=== PATIENT | female | born 1990 | race American Indian/Alaskan Native ===

== ENCOUNTER 2019-04-21 10:05 | Outpatient (CLI) | payer OTHER ==
[2019-04-21 11:05] VITALS: BP 123/70
[2019-04-21] MEDS ORDERED: LACTATED RINGERS 1,000 ML IV ONE (11:17)
[2019-04-21] MEDS ORDERED: ONDANSETRON 4 MG/2 ML INJ IV PRN (11:48)
[2019-04-21 12:01] LABS: Bilirubin,Urine NEG (Negative); Blood,Urine NEG (Negative); Color,Urine Yellow (Yellow); Mucus,Urine 3+ /HPF
== END 2019-04-21 13:15 | disposition home or self-care (01) ==
LOC: TRG 10:05
PROVIDERS: ATTEND Obstetrics & Gynecology
DX: O26.893 Other specified pregnancy related conditions, third trimester (principal); R42 Dizziness and giddiness; O47.03 False labor before 37 completed weeks of gestation, third trimester; Z3A.33 33 weeks gestation of pregnancy
CPT/HCPCS: 59025; 81001; 96365; J2405; J7120; 96360

== ENCOUNTER 2019-05-02 12:24 | Outpatient (CLI) | payer OTHER ==
[2019-05-02 12:48] VITALS: BP 107/67
[2019-05-02] MEDS ORDERED: LACTATED RINGERS 500 ML IV ONE (13:56)
--- NOTE | 2019-05-02 14:21 | Event Note ---
Date: 05/02/19 (r/o ROM) Perineum is dry. Negative pooling, ferning and nitrazine. SVE 1,50,ballotable Pt gives hx of "a lot of fluid came out this morning." Will order US for KANU.
== END 2019-05-02 16:15 | disposition home or self-care (01) ==
LOC: TRG 12:24
PROVIDERS: ATTEND Obstetrics & Gynecology
DX: O47.03 False labor before 37 completed weeks of gestation, third trimester (principal); Z3A.35 35 weeks gestation of pregnancy
CPT/HCPCS: 59025